=== PATIENT | male | born 1950 | race Caucasian/White ===

== ENCOUNTER → 2017-09-03 | Day surgery (SDC) | payer BC ==
[~2017-09-03] MED LIST: ASPIR 8181 MG PO; BENEFIBER1 EAC1 PO; CETERIZINE PO; DICYCLOMINE HCL10 MG PO; EPHEDRINE SULFATE INJ 50 MG/10 ML SYR ONE; EPINEPHRINE HCL INJ 1 MG/ML AMP ONE; FENOFIBRATE145 MG PO; FENOFIBRIC ACI105 MG PO; FENTANYL CITRATE/PF 100MCG/2 ML INJ ONE; FISH OIL 1,0001 EAC2 PO; HYDROCHLOROTHIA25 MG PO; HYOSCYAMINE SULFATE 0.5 MG/ML AMP ONE; LIDOCAINE HCL 2% LOCAL INJ 5 ML SDV VIAL INJ ONE; LOSARTAN POTAS100 MG PO; METOPROLOL TART50 MG PO; MIDAZOLAM HCL 2 MG/2 ML VIAL ONE; MULTIVITAMINS1 EAC7 PO; PANTOPRAZOLE SO40 MG PO; PHENYLEPHRINE HCL 1% 10 MG/ML VIAL ONE; PROBIOTIC & AC1 EACH PO; PROPOFOL IV EMULSION 10 MG/ML 50 ML VIAL ONE; TOPIRAMATE25 MG PO; VITAMIN C500 MG PO; VITAMIN D31000 UNIT PO; VITAMIN E400 UNI1 PO
--- NOTE | 2017-09-03 11:54 | Operative Report ---
DATE OF PROCEDURE: September 03, 2017 REFERRING PHYSICIAN: Terrence Ley MD PROCEDURE PERFORMED: Esophagogastroduodenoscopy with biopsies and a colonoscopy with polypectomy. INDICATIONS FOR ESOPHAGOGASTRODUODENOSCOPY: History of gastric nodules, weight loss. INDICATIONS FOR COLONOSCOPY: Colorectal cancer screening, personal history of colon polyps, and loose stools. MEDICATION: Patient was done under MAC. Please see anesthesiologist's note. ESOPHAGOGASTRODUODENOSCOPY: With patient in left lateral decubitus position, flexible fiberoptic Olympus gastroscope was introduced into the esophagus under direct visualization without any difficulty. There were some patchy erythema noted in distal esophagus. The scope was then advanced with ease into the stomach and mucosa overlying the antrum and the body, revealed some diffuse erythema and [id number] edema, and biopsies were obtained and sent to stain for H. pylori. A submucosal nodule was noted in the antrum along the anterior wall that was biopsied. The pylorus appeared to be of normal contour and shape. He was intubated with ease and the scope was advanced all the way to the 2nd portion of the duodenum. Biopsies were obtained from the proximal 2nd portion, were taken to rule out sprue. The mucosa overlying the duodenal bulb appeared to be within normal limits. The scope was then withdrawn back into the stomach and retroflexed, and the mucosa overlying the fundus and the cardia appeared to be within normal limits. The scope was then straightened out. The stomach was decompressed. Scope was subsequently withdrawn. Patient tolerated the procedure well. IMPRESSION 1. Distal esophagitis, mild. 2. Gastritis, biopsied. Biopsies sent to stain for Helicobacter pylori. 3. Submucosal nodule, antrum, biopsied. 4. Rule out sprue. PLAN: Follow up histology. Initiate Protonix 40 mg 1 p.o. q.a.m. a.c. COLONOSCOPY: Patient was then turned around, and after adequate lubrication of the anal canal, the flexible fiberoptic Olympus colonoscope was inserted into the rectum with ease and advanced all the way to the cecum. The mucosa overlying the cecum appeared to be within normal limits. The ileocecal valve was intubated and the scope was advanced into the terminal ileum. Biopsies were obtained. The scope was then withdrawn back into the colon. It was then withdrawn slowly. Mucosa overlying the ascending and the transverse appeared to be within normal limits. Mild inflammatory changes were noted in the left colon. Multiple random biopsies were obtained. Scattered diverticular disease was noted in the distal descending and the sigmoid colon. One polyp was hot biopsied from the rectum. The scope was then retroflexed into the distal rectum and small internal hemorrhoids were noted, none of which was actively bleeding. The scope was then straightened out. The rectosigmoid area as well as the distal rectal area were decompressed. Scope was subsequently withdrawn after securing an adequate stool specimen that was sent for the appropriate stool studies. Patient tolerated the procedure well. IMPRESSION 1. Mild patchy left-sided colitis. 2. Diverticulosis. 3. Rectal polyp, hot biopsied. 4. Internal hemorrhoids, none actively bleeding. PLAN: Follow up histology. Follow up stool studies. Initiate VSL #3 DS 1 p.o. daily and Bentyl 10 mg 1 p.o. t.i.d.. Patient will need a followup colonoscopy in 3 to 5 years. Job#: [id number] [facility] cc:Terrence Ley MD
[2017-09-03 15:09] LABS: C DIFFICILE TOXIN A&B AMP PROB NEGATIVE (NEGATIVE); WBC,FECAL (FECAL LACTOFERRIN) NEGATIVE (NEGATIVE)
== END | disposition home or self-care (01) ==
LOC: OR 07:34
PROVIDERS: ATTEND Internal Medicine Gastroenterology
DX: Z12.11 Encounter for screening for malignant neoplasm of colon (principal); K62.1 Rectal polyp; K29.70 Gastritis, unspecified, without bleeding; K51.50 Left sided colitis without complications; K20.9 Esophagitis, unspecified; K31.89 Other diseases of stomach and duodenum; K57.30 Diverticulosis of large intestine without perforation or abscess without bleeding; K64.8 Other hemorrhoids; R63.4 Abnormal weight loss; I10 Essential (primary) hypertension; I34.1 Nonrheumatic mitral (valve) prolapse; E78.5 Hyperlipidemia, unspecified; I25.2 Old myocardial infarction; R05 Cough; T78.40XA Allergy, unspecified, initial encounter; X58.XXXA Exposure to other specified factors, initial encounter; Z79.82 Long term (current) use of aspirin; Z68.27 Body mass index [BMI] 27.0-27.9, adult; Z87.891 Personal history of nicotine dependence; Z85.828 Personal history of other malignant neoplasm of skin; Z80.0 Family history of malignant neoplasm of digestive organs
CPT/HCPCS: 43239; 45380; 45384; 83630; 83993; 87045; 87177; 87328; 87493; J0171; J1980; J2001; J2250; J2370

== ENCOUNTER → 2017-09-09 | Outpatient (CLI) | payer BC ==
[~2017-09-09] MED LIST changes: -EPHEDRINE SULFATE INJ 50 MG/10 ML SYR ONE; -EPINEPHRINE HCL INJ 1 MG/ML AMP ONE; -FENTANYL CITRATE/PF 100MCG/2 ML INJ ONE; -HYOSCYAMINE SULFATE 0.5 MG/ML AMP ONE; -LIDOCAINE HCL 2% LOCAL INJ 5 ML SDV VIAL INJ ONE; -MIDAZOLAM HCL 2 MG/2 ML VIAL ONE; -PHENYLEPHRINE HCL 1% 10 MG/ML VIAL ONE; -PROPOFOL IV EMULSION 10 MG/ML 50 ML VIAL ONE
--- NOTE | 2017-09-09 14:22 | Diagnostic Imaging Report ---
PROCEDURE:US RETROPERITONEAL ( KIDNEY ). COMPARISON:None. INDICATIONS:CHRONIC KIDNEY DISEASE STAGE 3 TECHNIQUE: Alejo-scale and color sonographic images of the bilateral kidneys and bladder where obtained in transverse and longitudinal planes. FINDINGS: RIGHT KIDNEY: 10.8 cm in length, cortical thickness 2.2 cm. Cysts: None Solid masses: None Stones: None Hydronephrosis: None Echogenicity: Mildly increased renal cortical echogenicity LEFT KIDNEY: 13 cm in length, cortical thickness 1.9 cm. Cysts: None Solid masses: None Stones: None Hydronephrosis: None Echogenicity: Mildly increased renal cortical echogenicity. Bladder: Unremarkable. Right and left ureteral jets are identified. Post void residual volume 77 cc. Prostate: 4.9 x 3.3 x 3.2 cm, estimated volume 27 cc. CONCLUSION: Mildly increased renal cortical echogenicity in keeping with the clinical diagnosis of chronic kidney disease. No hydronephrosis. Dictated by: Vu García M.D. on 09/09/2017 at 14:22 Electronically approved by: Vu García M.D. on 09/09/2017 at 14:22
--- NOTE | 2017-09-09 14:23 | Diagnostic Imaging Report ---
PROCEDURE:URINARY BLADDER ULTRASOUND COMPARISON:None. INDICATIONS:CHRONIC KIDNEY DISEASE STAGE 3 CONCLUSION: Please refer to "US RETROPERITONEAL" performed at the same date and time for full dictated report. Dictated by: Vu García M.D. on 09/09/2017 at 14:23 Electronically approved by: Vu García M.D. on 09/09/2017 at 14:23
== END ==
LOC: US 12:47
PROVIDERS: ATTEND Family Medicine
DX: N18.3 Chronic kidney disease, stage 3 (moderate) (principal)
CPT/HCPCS: 76770; 76857

== ENCOUNTER → 2017-09-15 | Day surgery (SDC) | payer BC ==
[~2017-09-15] MED LIST changes: +FENTANYL CITRATE/PF 100MCG/2 ML INJ ONE; +MIDAZOLAM HCL 2 MG/2 ML VIAL ONE; +OR PHACO EYE KIT ONE; +PREOP PHACO EYE KIT ONE
--- OUTSIDE RECORDS SUMMARY | 2017-09-15 10:05 | XMS REPORT ---
[facility] Address Unknown Phone Unavailable Care Team Providers Care [employer]p Litigation Associate Name Role Phone AMERICA TESFAYE Unavailable Unavailable Problems This patient has no known problems. Allergies, Adverse Reactions, Alerts This patient has no known allergies or adverse reactions. Medications This patient has no known medications. Results Test Description Test Time Test Comments Text Results Atomic Results Result Comments US RENAL RETROPERITONEAL COMP [place] [address] Patient Name: DARIO MEDEL MR #: [id number] : 1950 Age/Sex: 66/M Req #: [id number] Adm Physician: Ordered by: AMERICA TESFAYE MD Report #: [id number] Location: US Room/Bed: Procedure: [id number] US/US RENAL RETROPERITONEAL COMP Exam Date: Exam Time: REPORT STATUS: Signed PROCEDURE: US RETROPERITONEAL ( KIDNEY ). COMPARISON: None. INDICATIONS: CHRONIC KIDNEY DISEASE STAGE 3 TECHNIQUE: Alejo-scale and color sonographic images of the bilateral kidneys and bladder where obtained in transverse and longitudinal planes. FINDINGS: RIGHT KIDNEY: 10.8 cm in length , cortical thickness 2.2 cm. Cysts: None Solid masses: None Stones: None Hydronephrosis: None Echogenicity: Mildly increased renal cortical echogenicity LEFT KIDNEY: 13 cm in length, cortical thickness 1.9 cm. Cysts: None Solid masses: None Stones: None Hydronephrosis: None Echogenicity: Mildly increased renal cortical echogenicity. Bladder: Unremarkable. Right and left ureteral jets are identified. Post void residual volume 77 cc. Prostate: 4.9 x 3.3 x 3.2 cm, estimated volume 27 cc. CONCLUSION: Mildly increased renal cortical echogenicity in keeping with the clinical diagnosis of chronic kidney disease. No hydronephrosis. Dictated by: Vielka Stinson M.D. on 09/09/2017 at 14:22 Electronically approved by: Vielka Stinson M.D. on 09/09/2017 at 14:22 Dictated By: VIELKA STINSON MD 142 Transcribed By: ELY on 09/09/17 142 COPY TO: AMERICA TESFAYE MD US PELVIC (NON OB) LITTLE OR F/U [place] [address] Patient Name: DARIO MEDEL MR #: [id number] : 1950 Age/Sex: 66/M Req #: [id number] Adm Physician: Ordered by: AMERICA TESFAYE MD Report #: [id number] Location: US Room/Bed: Procedure: [id number] US/US PELVIC (NON OB) LITTLE OR F/U Exam Date: Exam Time: REPORT STATUS: Signed PROCEDURE: URINARY BLADDER ULTRASOUND COMPARISON: None. INDICATIONS: CHRONIC KIDNEY DISEASE STAGE 3 CONCLUSION: Please refer to "US RETROPERITONEAL" performed at the same date and time for full dictated report. Dictated by: Vielka Stinson M.D. on 09/09/2017 at 14:23 Electronically approved by: Vielka Stinson M.D. on 09/09/2017 at 14:23 Dictated By : VIELKA STINSON MD 142 Transcribed By: ELY on 09/09/17 142 COPY TO: AMERICA TESFAYE MD
== END | disposition home or self-care (01) ==
LOC: OR 10:03
PROVIDERS: ATTEND Ophthalmology
DX: H25.12 Age-related nuclear cataract, left eye (principal); I12.9 Hypertensive chronic kidney disease with stage 1 through stage 4 chronic kidney disease, or unspecified chronic kidney disease; N18.9 Chronic kidney disease, unspecified; R25.1 Tremor, unspecified; R05 Cough; K58.9 Irritable bowel syndrome, unspecified; Z79.82 Long term (current) use of aspirin
CPT/HCPCS: 66984; J2250; V2788

== ENCOUNTER → 2017-09-29 | Day surgery (SDC) | payer BC | END | disposition home or self-care (01) | LOC: OR 12:52 | PROVIDERS: ATTEND Ophthalmology | DX: H25.11 Age-related nuclear cataract, right eye (principal); R25.1 Tremor, unspecified; I10 Essential (primary) hypertension; I34.1 Nonrheumatic mitral (valve) prolapse; E78.5 Hyperlipidemia, unspecified; Z79.82 Long term (current) use of aspirin | CPT/HCPCS: 66984; J2250; V2632 ==

== ENCOUNTER → 2018-10-28 | Outpatient (CLI) | payer OTHER ==
[~2018-10-28] MED LIST changes: -FENTANYL CITRATE/PF 100MCG/2 ML INJ ONE; -MIDAZOLAM HCL 2 MG/2 ML VIAL ONE; -OR PHACO EYE KIT ONE; -PREOP PHACO EYE KIT ONE
--- NOTE | 2018-10-28 15:54 | Diagnostic Imaging Report ---
Exam: Right testicular ultrasound with Doppler Clinical History: Right scrotal pin sized mass. Findings: Status post left orchiectomy. The right testicle is normal in echogenicity and size without intratesticular mass. No evidence of varicocele. There is a small right hydrocele. The right epididymis is unremarkable in appearance. The right testicle measures 5.0 x 3.1 x 4.1 cm. The right epididymis measures 1.5 x 0.8 x 1.0 cm. Normal Doppler flow. Impression: No sonographic abnormality in the right testicle or epididymis. Status post left orchiectomy. Signed by: Dr. Neymar Conroy MD on 10/28/2018 3:50 PM
== END ==
LOC: US 14:31
PROVIDERS: ATTEND Internal Medicine
DX: N50.9 Disorder of male genital organs, unspecified (principal)
CPT/HCPCS: 76870; 93976

== ENCOUNTER → 2019-04-26 | Outpatient (CLI) | payer MEDICARE ==
--- NOTE | 2019-04-26 14:07 | Diagnostic Imaging Report ---
EXAMINATION: HIP RIGHT 2-3 VW (+/- PELVIS) INDICATION: Right hip pain COMPARISON: None FINDINGS: AP and frog-leg views of the right hip demonstrate no acute fracture or dislocation. Alignment is anatomic. Mild degenerative changes of the right hip joint. Phleboliths in the pelvis. Atherosclerotic vascular calcifications. IMPRESSION: No acute osseous injury. Mild degenerative changes of the right hip joint. Signed by: Tomás Soares MD on 04/26/2019 2:04 PM
== END ==
LOC: RAD 12:44
PROVIDERS: ATTEND Internal Medicine
DX: M25.551 Pain in right hip (principal)